=== PATIENT | female | born 1995 | race African-American/Black ===

== ENCOUNTER 2022-05-21 03:18 | Emergency (ER) | payer OTHER ==
[2022-05-21 03:26] VITALS: BP 100/74; PULSE 91; RESP 18; TEMP 98; BMI 21.7
== END 2022-05-21 04:40 | disposition home or self-care (01) ==
LOC: JER 03:18
PROC: 0HQ1XZZ Repair Face Skin, External Approach (ICD-10-PCS; principal; 2022-05-21)
DX: S01.81XA Laceration without foreign body of other part of head, initial encounter (principal); S80.211A Abrasion, right knee, initial encounter; S80.212A Abrasion, left knee, initial encounter; S60.511A Abrasion of right hand, initial encounter; S60.512A Abrasion of left hand, initial encounter; W01.0XXA Fall on same level from slipping, tripping and stumbling without subsequent striking against object, initial encounter
CPT/HCPCS: 99282-25

== ENCOUNTER 2022-05-27 22:23 | Emergency (ER) | payer OTHER ==
[2022-05-27 22:32] VITALS: BP 107/61; PULSE 76; RESP 16; TEMP 98; BMI 21.7
== END 2022-05-27 23:05 | disposition home or self-care (01) ==
LOC: JER 22:23 → JERFT 22:23
DX: Z48.02 Encounter for removal of sutures (principal)
CPT/HCPCS: 99281-25